=== PATIENT | female | born 1955 | race Caucasian/White ===

== ENCOUNTER → 2020-04-13 13:09 | Outpatient (CLI) | payer BC, SELFPAY ==
--- NOTE | ~2020-04-13 | DEXA_ITS ---
Bone Density Report Name: Emy Bhatia Age: 64 Sex: Female Ethnicity: White Date of : 1955 Indication: postmenopausal; screening for osteoporosis; Referring Provider: PASCUAL, JULIA Study: Bone densitometry was performed. Exam Date: April 13, 2020 Accession number: [id number] Bone Density: Region BMD T-score Z-score Classification AP Spine (L1-L4) 0.933 -1.0 0.5 Normal Femoral Neck (Left) 0.757 -0.8 0.6 Normal Total Hip (Left) 0.801 -1.2 -0.1 Osteopenia Femoral Neck (Right) 0.801 -0.4 1.0 Normal Total Hip (Right) 0.803 -1.1 -0.1 Osteopenia Total Hip Mean 0.802 -1.2 -0.1 Osteopenia World Health Organization criteria for BMD impression classify patients as: Normal (T-score at or above -1.0), Osteopenia (T-score between -1.0 and -2.5), or Osteoporosis (T-score at or below -2.5). 10-year Fracture Risk(1): Major Osteoporotic Fracture 6.8% Hip Fracture 0.3% Reported Risk Factors: [place] (), Neck BMD=0.757, BMI=35.6 (1) FRAX(R) Version 3.08. Fracture probability calculated for an untreated patient. Fracture probability may be lower if the patient has received treatment. Previous Exams: Region Exam Age BMD T-score BMD Change BMD Change Date g/cm2 vs Baseline vs Previous AP Spine(L1-L4) 04/13/2020 64 0.933 -1.0 -0.015 -0.030 09/13/2016 60 0.964 -0.8 0.015 0.015 07/05/2013 57 0.949 -0.9 0.000 0.067* 06/10/2011 55 0.881 -1.5 -0.067* -0.067* 07/02/2008 52 0.948 -0.9 Total Hip(Left) 04/13/2020 64 0.801 -1.2 -0.007 -0.028 09/13/2016 60 0.829 -0.9 0.021 0.000 07/05/2013 57 0.829 -0.9 0.021 0.022 06/10/2011 55 0.807 -1.1 -0.001 -0.001 07/02/2008 52 0.808 -1.1 Total Hip(Right) 04/13/2020 64 0.803 -1.1 0.009 -0.019 09/13/2016 60 0.822 -1.0 0.028* -0.006 07/05/2013 57 0.828 -0.9 0.034* 0.030* 06/10/2011 55 0.798 -1.2 0.003 0.003 07/02/2008 52 0.794 -1.2 *Denotes significance at 95% confidence level, LSC for AP Spine = 0.022 g/cm2, LSC for Total Hip = 0.027 g/cm2 Clinical Information Provided by Patient: Has used the following medications: Vitamin D Patient maximum height was 65.5 Menopause Age: 51 Drinks caffeinated beverages Onset of menses at age 16 Number of children 2 -------
== END ==
PROVIDERS: Visit Provider Nurse Practitioner
DX: Z78.0 Asymptomatic menopausal state (principal); M85.852 Other specified disorders of bone density and structure, left thigh; M85.851 Other specified disorders of bone density and structure, right thigh
CPT/HCPCS: 77080

== ENCOUNTER 2020-04-23 09:31 | Outpatient (CLI) | payer BC, SELFPAY ==
--- NOTE | ~2020-04-23 | MM_ITS ---
EXAMINATION: MM screening perlita BI w elvin HISTORY: Screening mammogram TECHNIQUE: Craniocaudal and mediolateral oblique 3-D tomosynthesis images were obtained and synthetic 2-D images were generated. CAD analysis was submitted and interpreted. COMPARISON: 04/18/2019, 08/08/2017, 07/04/2016 bilateral digital screening mammogram examinations BREAST PARENCHYMAL COMPOSITION: There are scattered areas of fibroglandular density. FINDINGS: Stable mild fibroglandular asymmetry. There is no evidence of suspicious mass, calcificatio n, or architectural distortion to suggest malignancy in either breast. There has been no suspicious i nterval change. IMPRESSION: 1. No mammographic evidence of malignancy. 2. Recommend routine screening mammography in one year. BI-RADS Category 1: Negative Reviewed, dictated and finalized at location A.
== END 2020-04-23 09:32 | disposition home or self-care (01) ==
LOC: ANHIMG 09:35
PROVIDERS: PCP Internal Medicine; Visit Provider Nurse Practitioner
DX: Z12.31 Encounter for screening mammogram for malignant neoplasm of breast (principal)
CPT/HCPCS: 77063; 77067

== ENCOUNTER 2020-10-21 07:42 | Outpatient (CLI) | payer OTHER, SELFPAY ==
--- NOTE | ~2020-10-21 | XR_ITS ---
EXAMINATION: XR UGIAC w barium swallow DATE: 10/21/2020 08:29 INDICATION: Gastroesophageal reflux disease TECHNIQUE: The patient drank thick barium, gas-producing crystals, and thin barium. Conventional supi ne abdomen radiographs and fluoroscopy of the esophagus, stomach, and proximal small bowel were perfo rmed. Fluoroscopy exposure time was 2.8 minutes. The DAP for this procedure was 27 Gycm2. COMPARISON: None. FINDINGS: There is no mass or stricture of the esophagus. Esophageal motility is normal. There is a s mall sliding hiatal hernia. There was a small amount of spontaneous gastroesophageal reflux. The stom ach and proximal small bowel show normal folding patterns. IMPRESSION: 1. Small sliding hiatal hernia and a small amount of spontaneous gastroesophageal reflux. Reviewed, dictated and finalized at location A. E MAKER IMPRESSION: 1. Small sliding hiatal hernia and a small amount of spontaneous gastroesophage al reflux.
== END 2020-10-21 07:43 | disposition home or self-care (01) ==
LOC: ANHIMG 07:48
PROVIDERS: PCP Internal Medicine; Visit Provider Physician Assistant Medical
DX: K21.9 Gastro-esophageal reflux disease without esophagitis (principal); K44.9 Diaphragmatic hernia without obstruction or gangrene
CPT/HCPCS: 74246

== ENCOUNTER 2021-03-04 01:23 | Day surgery (SDC) | payer OTHER, SELFPAY ==
[2021-02-18 11:04] VITALS: BMI 34.1
[2021-03-04 06:48] VITALS: BP 120/68; PULSE 89; RESP 18; TEMP 35.9; O2SAT 97; BMI 33.6
[2021-03-04] MEDS: LACTATED RINGERS 1,000 ML 150 ML IV CONT (06:57)
--- NOTE | 2021-03-04 07:24 | WPDANESEPPF ---
Anes - Initial Pre Proc Eval Procedure: Operation Date: 03/04/21 08:00 Proposed Procedures p Colonoscopy - Vignesh Burris DO Date/Time: 03/04/21 07:24 Surgeon: Vignesh Burris DO Pre Op Diagnosis: colon polyps, constipation Patient Data Age: 65 Gender: F Height: 1.68 m Weight: 94.5 kg Last Vital Signs Temp 96.7 F L 03/04/21 06:48 Pulse 89 03/04/21 06:48 Resp 18 03/04/21 06:48 BP 120/68 03/04/21 06:48 Pulse Ox 97 03/04/21 06:48 Allergies Allergy/AdvReac Type Severity Reaction Status Date / Time No Known Allergies Allergy Mild Verified 02/18/21 11:03 Home Medications Medication Instructions Recorded Confirmed Type ergocalciferol (vitamin D2) 1,250 50,000 unit PO WEEKLY 09/23/19 03/04/21 History mcg (50,000 unit) capsule rabeprazole 20 mg tablet,delayed 20 mg PO DAILY #90 tablet 09/03/20 03/04/21 Rx release Patient hx anesthesia problems: none Family hx anesthesia problems: none PMFSH Past Medical History Medical History (System 10/21/20 @ 08:52 by Karla Ly) GERD (gastroesophageal reflux disease) Lipoma of breast Left removed Squamous cell carcinoma removed 2016 Tinnitus Surgical History Surgical History (System 10/21/20 @ 08:52 by Karla Ly) H/O endoscopy 10/2017 Family History Family History (System 10/21/20 @ 08:52 by Karla Ly) Mother Rectal cancer Father Lung cancer Social History Social History (System 10/21/20 @ 08:52 by Karla Ly) Smoking status: Former smoker Alcohol intake: current Alcohol use details: Socially Substance use: never Substance use type: does not use Living arrangements: with family Gender identity (if verbalized by the patient): Female Spiritual care concerns: No Anes - Eval Final PreProcedure Day of Procedure 03/04/21 07:24 Patient weight: obese Heart: regular rate and rhythm Lungs: clear to auscultation Airway: Mallampati scale class II Neurological: alert and oriented Last oral intake: >/= 8 hours ASA classification: II Emergent: no Anesthetic plan: proceed Anesthesia type and monitoring: general GIVS and standard monitoring Informed Consent: The patient's anesthetic plan and its attendant risks and benefits were discussed with the patient/family/POA. Questions were solicited and answers provided to the satisfaction of the patient/family/POA.
--- NOTE | 2021-03-04 07:52 | WPDGICN ---
GI Consult Note Consult date/time: 03/04/21 07:52 HPI: Reason for visit colonoscopy. Very pleasant lady seen in consultation request of the primary physician. Impression: Screening and surveillance colonoscopy. The patient has a history of colon polyps and a family history of colorectal cancer. GERD pretty well controlled on medication. Skin cancer. Squamous cell carcinoma. HLD. Recommendation: Colonoscopy. History: This very pleasant lady's being evaluated for screening and surveillance colonoscopy. She has a family history of rectal cancer. The patient has a history of colon polyps. Patient does report a history of reflux disease. It is pretty well controlled with medication. She has open where breakthrough symptoms. She is here for colonoscopy. Physical examination: General: very pleasant patient in no acute distress. HEENT: Head was normocephalic sclerae is clear mouth without masses neck was supple. Heart: Rate rhythm regular without S3 or S4. Lungs: CTA. Abdomen: Soft with no guarding or rigidity. Bowel sounds were active. Neurologic: Cranial nerves 2 through 12 intact. No focal defects. No clonus. Musculoskeletal system: Revealed no joint tenderness or swelling no muscle atrophy. Extremities: Reveal no significant edema. Skin: Warm and dry with normal turgor. Mental status: intact. Patient is alert and oriented. Review of Systems Review of Systems: All systems reviewed & are unremarkable except as noted in HPI and below PMFSH Past Medical History Medical History (System 10/21/20 @ 08:52 by Karla Ly) GERD (gastroesophageal reflux disease) Lipoma of breast Left removed Squamous cell carcinoma removed 2016 Tinnitus Surgical History Surgical History (System 10/21/20 @ 08:52 by Karla Ly) H/O endoscopy 10/2017 Family History Family History (System 10/21/20 @ 08:52 by Karla Ly) Mother Rectal cancer Father Lung cancer Social History Social History (System 10/21/20 @ 08:52 by Karla Ly) Smoking status: Former smoker Alcohol intake: current Alcohol use details: Socially Substance use: never Substance use type: does not use Living arrangements: with family Gender identity (if verbalized by the patient): Female Spiritual care concerns: No Meds Home Medications and Allergies Home Medications Medication Instructions Recorded Confirmed Type ergocalciferol (vitamin D2) 1,250 50,000 unit PO WEEKLY 09/23/19 03/04/21 History mcg (50,000 unit) capsule rabeprazole 20 mg tablet,delayed 20 mg PO DAILY #90 tablet 09/03/20 03/04/21 Rx release Allergies Allergy/AdvReac Type Severity Reaction Status Date / Time No Known Allergies Allergy Mild Verified 02/18/21 11:03 Vital Signs Vital Signs - 24 hr 03/04/21 06:48 Temperature 35.9 C L Pulse Rate 89 Respiratory Rate 18 Blood Pressure 120/68 Pulse Oximetry 97
[2021-03-04 08:20] VITALS: BP 88/50; PULSE 61; RESP 18; O2SAT 97
[2021-03-04 08:28] VITALS: BP 92/61; PULSE 62; RESP 18; O2SAT 100
[2021-03-04 08:38] VITALS: BP 97/60; PULSE 61; RESP 18; O2SAT 100
== END 2021-03-04 08:56 | disposition home or self-care (01) ==
PROVIDERS: PCP Internal Medicine; Visit Provider Internal Medicine Gastroenterology
PROC: 0DJD8ZZ Inspection of Lower Intestinal Tract, Via Natural or Artificial Opening Endoscopic (ICD-10-PCS; CPT 45378; principal; 2021-03-04 08:00)
DX: Z12.11 Encounter for screening for malignant neoplasm of colon (principal); K57.30 Diverticulosis of large intestine without perforation or abscess without bleeding; Z86.010 Personal history of colon polyps; Z80.0 Family history of malignant neoplasm of digestive organs; K21.9 Gastro-esophageal reflux disease without esophagitis; E78.5 Hyperlipidemia, unspecified; Z85.828 Personal history of other malignant neoplasm of skin; Z87.891 Personal history of nicotine dependence; E66.9 Obesity, unspecified; Z68.33 Body mass index [BMI] 33.0-33.9, adult
CPT/HCPCS: 45378; J2704; J7120

== ENCOUNTER → 2021-12-15 15:41 | Outpatient (CLI) | payer OTHER, SELFPAY ==
--- NOTE | ~2021-12-15 | MM_ITS ---
EXAMINATION: MM screening perlita BI w elvin HISTORY: Screening TECHNIQUE: Craniocaudal and mediolateral oblique 3-D tomosynthesis images were obtained and synthetic 2-D images were generated. CAD analysis was submitted and interpreted. COMPARISON: Comparison to multiple prior studies sequentially, with oldest reviewed study dated 09/2012. BREAST PARENCHYMAL COMPOSITION: Breast composed of scattered areas of fibroglandular density FINDINGS: The left breast is stable without evidence for malignancy. There is a developing asymmetry in the central aspect of the right breast on CC view. IMPRESSION: 1. Developing right breast asymmetry. 2. Additional mammographic views and possible breast ultrasound are recommended. BI-RADS Category 0: Incomplete: Needs additional imaging evaluation. Reviewed, dictated and finalized at location A. IMPRESSION: 1. Developing right breast asymmetry. 2. Additional mammographic views and possible breast ultrasound are recommended . BI-RADS Category 0: Incomplete: Needs additional imaging evaluation.
== END ==
PROVIDERS: PCP Internal Medicine; Visit Provider Nurse Practitioner
DX: Z12.31 Encounter for screening mammogram for malignant neoplasm of breast (principal); R92.8 Other abnormal and inconclusive findings on diagnostic imaging of breast
CPT/HCPCS: 77063; 77067

== ENCOUNTER → 2021-12-31 08:21 | Outpatient (CLI) | payer OTHER, SELFPAY ==
--- NOTE | ~2021-12-31 | MMUS_ITS ---
EXAMINATION: MM diagnostic perlita RT w elvin, US breast RT complete HISTORY: Follow-up right breast asymmetry TECHNIQUE: Additional 3-D tomosynthesis images of the right breast were performed and synthetic 2-D i mages were generated. CAD analysis was submitted and interpreted. High resolution complete right marlyn st ultrasound was performed. COMPARISON: 08/19/2014 BREAST PARENCHYMAL COMPOSITION: BREAST PARENCHYMAL COMPOSITION: The breasts are heterogeneously dense, which may obscure small masses . FINDINGS: MAMMOGRAPHIC FINDINGS: There are no suspicious masses, calcifications or architectural distortion in the right breast to sug gest malignancy. ULTRASOUND: Complete US of all 4 quadrants of the right breast and retroareolar region was reviewed. At 12:00, 2 cm from the nipple there is a 3 mm cyst. There is heterogeneous subareolar soft tissue without discre te mass. IMPRESSION: 1. No evidence for malignancy in the right breast. Benign findings. 2. Routine yearly screening mammogram and regular clinical breast examination are recommended. BI-RADS Category 2: Benign finding(s). Reviewed, dictated and finalized at location A. IMPRESSION: 1. No evidence for malignancy in the right breast. Benign findings. 2. Routine yearly screening mammogram and regular clinical breast examination a re recommended. BI-RADS Category 2: Benign finding(s).
== END ==
PROVIDERS: PCP Obstetrics & Gynecology Gynecology; Visit Provider Obstetrics & Gynecology Gynecology
DX: R92.8 Other abnormal and inconclusive findings on diagnostic imaging of breast (principal)
CPT/HCPCS: 76641; 77061; 77065; G0279

== ENCOUNTER 2023-01-02 09:57 | Outpatient (CLI) | payer OTHER, SELFPAY ==
--- NOTE | ~2023-01-02 | DEXA_ITS ---
Bone Density Report Name: PAULA CHENG Age: 67 Sex: Female Ethnicity: White Date of : 1955 Indication: osteopenia; prior fracture;postmenopausal Referring Provider: PASCUAL, JULIA Study: Bone densitometry was performed. Exam Date: January 02, 2023 Accession number: [id number] Bone Density: Region BMD T-score Z-score Classification AP Spine (L1-L4) 0.910 -1.2 0.5 Osteopenia Femoral Neck (Left) 0.745 -0.9 0.6 Normal Total Hip (Left) 0.794 -1.2 0.0 Osteopenia Femoral Neck (Right) 0.708 -1.3 0.3 Osteopenia Total Hip (Right) 0.733 -1.7 -0.5 Osteopenia Total Hip Mean 0.764 -1.5 -0.3 Osteopenia World Health Organization criteria for BMD impression classify patients as: Normal (T-score at or above -1.0), Osteopenia (T-score between -1.0 and -2.5), or Osteoporosis (T-score at or below -2.5). 10-year Fracture Risk(1): Major Osteoporotic Fracture 13% Hip Fracture 1.1% Reported Risk Factors: [place] (), Neck BMD=0.708, BMI=29.9, previous fracture (1) FRAX(R) Version 3.08. Fracture probability calculated for an untreated patient. Fracture probability may be lower if the patient has received treatment. Previous Exams: Region Exam Age BMD T-score BMD Change BMD Change Date g/cm2 vs Baseline vs Previous AP Spine(L1-L4) 01/02/2023 67 0.910 -1.2 -0.038* -0.023 04/13/2020 64 0.933 -1.0 -0.015 -0.030 09/13/2016 60 0.964 -0.8 0.015 0.015 07/05/2013 57 0.949 -0.9 0.000 0.067* 06/10/2011 55 0.881 -1.5 -0.067* -0.067* 07/02/2008 52 0.948 -0.9 Total Hip(Left) 01/02/2023 67 0.794 -1.2 -0.014 -0.007 04/13/2020 64 0.801 -1.2 -0.007 -0.028 09/13/2016 60 0.829 -0.9 0.021 0.000 07/05/2013 57 0.829 -0.9 0.021 0.022 06/10/2011 55 0.807 -1.1 -0.001 -0.001 07/02/2008 52 0.808 -1.1 Total Hip(Right) 01/02/2023 67 0.733 -1.7 -0.061* -0.070 04/13/2020 64 0.803 -1.1 0.009 -0.019 09/13/2016 60 0.822 -1.0 0.028* -0.006 07/05/2013 57 0.828 -0.9 0.034* 0.030* 06/10/2011 55 0.798 -1.2 0.003 0.003 07/02/2008 52 0.794 -1.2 *Denotes significance at 95% confidence level, LSC for AP Spine = 0.022 g/cm2, LSC for Total Hip = 0.027 g/cm2 Clinical Information Provided by Patient:
--- NOTE | ~2023-01-02 | MM_ITS ---
EXAMINATION: MM screening [facility] BI w elvin HISTORY: Screening mammogram TECHNIQUE: Craniocaudal and mediolateral oblique 3-D tomosynthesis images were obtained and synthetic 2-D images were generated. CAD analysis was submitted and interpreted. COMPARISON: 12/31/2021, 12/15/2021, 04/23/2020, 04/18/2019 BREAST PARENCHYMAL COMPOSITION: The breasts are heterogeneously dense, which may obscure small masses . FINDINGS: No suspicious mass, calcification, or architectural distortion are identified in either valentin ast to suggest malignancy. There has been no suspicious interval change. IMPRESSION: 1. No mammographic evidence of malignancy. 2. Recommend routine screening mammography in one year. BI-RADS Category 1: Negative Reviewed, dictated and finalized at location A.
== END 2023-01-02 09:58 ==
PROVIDERS: PCP Nurse Practitioner; Visit Provider Nurse Practitioner
DX: Z12.31 Encounter for screening mammogram for malignant neoplasm of breast (principal); M85.88 Other specified disorders of bone density and structure, other site; Z78.0 Asymptomatic menopausal state; M85.852 Other specified disorders of bone density and structure, left thigh; M85.851 Other specified disorders of bone density and structure, right thigh
CPT/HCPCS: 77063; 77067; 77080

== ENCOUNTER 2024-03-26 13:10 | Outpatient (CLI) | payer OTHER, SELFPAY ==
--- NOTE | ~2024-03-26 | MM_ITS ---
EXAMINATION: MM screening perlita BI w elvin HISTORY: Screening TECHNIQUE: Craniocaudal and mediolateral oblique 3-D tomosynthesis images were obtained and synthetic 2-D images were generated. CAD analysis was submitted and interpreted. COMPARISON: Comparison to multiple prior studies sequentially, with oldest reviewed study dated 04/23. BREAST PARENCHYMAL COMPOSITION: Not dense: There are scattered areas of fibroglandular density. FINDINGS: There are developing bilateral periareolar/subareolar asymmetries. There are no suspicious calcifications. IMPRESSION: 1. Developing bilateral asymmetries. 2. Additional mammographic views and possible breast ultrasound are recommended. BI-RADS Category 0: Incomplete: Needs additional imaging evaluation. Reviewed, dictated and finalized at location B. IMPRESSION: 1. Developing bilateral asymmetries. 2. Additional mammographic views and possible breast ultrasound are recommended . BI-RADS Category 0: Incomplete: Needs additional imaging evaluation.
== END 2024-03-26 13:11 ==
LOC: MICIMG 13:11
PROVIDERS: PCP Nurse Practitioner; Visit Provider Nurse Practitioner
DX: Z12.31 Encounter for screening mammogram for malignant neoplasm of breast (principal); R92.8 Other abnormal and inconclusive findings on diagnostic imaging of breast
CPT/HCPCS: 77063; 77067

== ENCOUNTER 2024-04-24 07:55 | Outpatient (CLI) | payer OTHER, SELFPAY ==
--- NOTE | ~2024-04-24 | MMUS_ITS ---
EXAMINATION: MM diagnostic perlita BI w elvin, US breast BI complete HISTORY: Follow-up bilateral breast asymmetries TECHNIQUE: Additional 3-D tomosynthesis images of the breasts were performed and synthetic 2-D images were generated. CAD analysis was submitted and interpreted. High resolution bilateral complete breas t ultrasound was performed. COMPARISON: Comparison to multiple prior studies sequentially, with oldest reviewed study dated 04/18. BREAST PARENCHYMAL COMPOSITION: Not dense: There are scattered areas of fibroglandular density. FINDINGS: MAMMOGRAPHIC FINDINGS: No discrete masses, architectural distortion or suspicious calcifications are identified. There is ni pple inversion. No skin thickening. ULTRASOUND: Complete US of all 4 quadrants of the breast/s and retroareolar region was reviewed. Right breast: At 12:00, 3 cm from the nipple, there is a 7 mm cyst. At 12:00, 2 cm from the nipple th ere is an irregular shaped antiparallel hypoechoic 7 mm mass with mixed posterior attenuation and no internal vascularity. Left breast: Normal heterogeneous echotexture without focal solid or cystic mass. IMPRESSION: 1. Irregular shape 7 mm hypoechoic right breast mass at 12:00, 2 cm from the nipple. 2. Ultrasound-guided right breast biopsy recommended. BI-RADS category 4, suspicious findings. Reviewed, dictated and finalized at location B. IMPRESSION: 1. Irregular shape 7 mm hypoechoic right breast mass at 12:00, 2 cm from the ni pple. 2. Ultrasound-guided right breast biopsy recommended. BI-RADS category 4, suspicious findings.
== END 2024-04-24 07:56 ==
PROVIDERS: PCP Obstetrics & Gynecology Gynecology; Visit Provider Obstetrics & Gynecology Gynecology
DX: R92.8 Other abnormal and inconclusive findings on diagnostic imaging of breast (principal)
CPT/HCPCS: 76641; 77062; 77066; G0279

== ENCOUNTER 2024-06-03 07:53 | Outpatient (CLI) | payer OTHER, SELFPAY ==
--- NOTE | ~2024-06-03 | MMUS_ITS ---
US breast biopsy RT w image, MM post biopsy diagnostic RT EXAMINATION: US GUIDED NEEDLE BIOPSY WITH VACUUM ASSISTANCE DATE: 06/03/2024 11:10 CDT INDICATION: Right breast mass seen on prior examination. Ultrasound-guided core biopsy is requested to evaluate for malignancy. BREAST PARENCHYMAL COMPOSITION: Dense: The breasts are heterogeneously dense, which may obscure small masses TECHNIQUE AND FINDINGS: The risks and potential benefits of the procedure were discussed with the patient, and written inform ed consent was obtained. After sterile preparation of the right breast, 1% lidocaine was utilized fo r local anesthesia. 1% lidocaine with epinephrine was used for deep anesthesia. A 10G vacuum-assisted biopsy gun needle was advanced through to the outer edge of the region of inter est from a superior/inferior/medial/lateral/superolateral/superomedial/inferolateral/inferomedial jacques miramontes utilizing sonographic guidance. A total of three tissue core samples were obtained through the lesion. An Inrad tissue marker clip was then placed at the biopsy site. Hemostasis was achieved. The patient tolerated procedure well and there was no evidence of immediate complication. The patien t was given verbal instructions partly is from the department. Right breast mammograms to document t issue marker clip placement. The tissue samples were submitted to surgical pathology for histologic a nalysis. IMPRESSION: 1. Successful ultrasound-guided vacuum-assisted biopsy of right breast mass with post procedure mamm ogram for marker placement. Please refer to pathology report for histologic analysis. Reviewed, dictated and finalized at location B. IMPRESSION: 1. Successful ultrasound-guided vacuum-assisted biopsy of right breast mass wi th post procedure mammogram for marker placement. Please refer to pathology rep ort for histologic analysis.
== END 2024-06-03 07:54 | disposition home or self-care (01) ==
PROVIDERS: PCP Obstetrics & Gynecology Gynecology; Visit Provider Surgery
DX: N63.15 Unspecified lump in the right breast, overlapping quadrants (principal); R92.8 Other abnormal and inconclusive findings on diagnostic imaging of breast
CPT/HCPCS: 19083; 77065; 88305; 88342; A4648

== ENCOUNTER 2025-03-14 10:44 | Outpatient (CLI) | payer OTHER, SELFPAY ==
--- NOTE | ~2025-03-14 | MR_ITS ---
MRI of the left knee Clinical history: Pain Technique: Coronal proton density and proton density-weighted images, sagittal proton-density and T2 fat-sat images, and axial proton-density fat-saturated images were acquired. Findings: Anterior and posterior cruciate ligaments are intact. Medial collateral ligament and the la teral collateral ligament complex are intact. Popliteus tendon is intact. Questionable subtle oblique tear of the posterior horn of the medial meniscus. No lateral meniscal te ar seen. There is high-grade chondral malacia the patellar apex. There is patchy moderate chondromalacia throu ghout the medial compartment. Small tricompartmental osteophyte are present. Extensor mechanism is intact. Small joint effusion present. No Ram's cyst. Impression: Questionable subtle oblique tear of the posterior horn of the medial meniscus. Degenerative changes, as detailed above. Small joint effusion. Reviewed, dictated and finalized at [facility]. Impression: Questionable subtle oblique tear of the posterior horn of the medial meniscus. Degenerative changes, as detailed above. Small joint effusion.
== END 2025-03-14 10:45 | disposition home or self-care (01) ==
LOC: GOSHIMG 10:44
PROVIDERS: PCP Nurse Practitioner Family; Visit Provider Nurse Practitioner Family
DX: M25.462 Effusion, left knee (principal); M17.12 Unilateral primary osteoarthritis, left knee
CPT/HCPCS: 73721

== ENCOUNTER 2025-04-14 09:29 | Outpatient (CLI) | payer OTHER, SELFPAY ==
--- NOTE | ~2025-04-14 | DEXA_ITS ---
Bone Density Report Name: PAULA CHENG Age: 69 Sex: Female Ethnicity: White Date of : 1955 Indication: osteopenia; height loss; Referring Provider: SUHAS MANCIA Study: Bone densitometry was performed. Exam Date: April 14, 2025 Accession number: [id number] Bone Density: Region BMD T-score Z-score Classification AP Spine(L1-L4) 0.916 -1.2 0.7 Osteopenia Femoral Neck (Left) 0.656 -1.7 -0.1 Osteopenia Total Hip (Left) 0.795 -1.2 0.2 Osteopenia Femoral Neck (Right) 0.656 -1.7 -0.1 Osteopenia Total Hip (Right) 0.801 -1.2 0.2 Osteopenia Total Hip Mean 0.798 -1.2 0.2 Osteopenia World Health Organization criteria for BMD impression classify patients as: Normal (T-score at or above -1.0), Osteopenia (T-score between -1.0 and -2.5), or Osteoporosis (T-score at or below -2.5). 10-year Fracture Risk(1): Major Osteoporotic Fracture 9.7% Hip Fracture 1.3% Reported Risk Factors: [place] (), Neck BMD=0.656, BMI=31.8 (1) FRAX(R) Version 3.08. Fracture probability calculated for an untreated patient. Fracture probability may be lower if the patient has received treatment. Previous Exams: Region Exam Age BMD T-score BMD Change BMD Change Date g/cm2 vs Baseline vs Previous AP Spine (L1-L4) 04/14/2025 69 0.916 -1.2 0.006 (0.6%)# 0.006 (0.6%)# 01/02/2023 67 0.910 -1.2 Total Hip(Left) 04/14/2025 69 0.795 -1.2 0.001 (0.1%)# 0.001 (0.1%)# 01/02/2023 67 0.794 -1.2 Total Hip(Right) 04/14/2025 69 0.801 -1.2 0.068 (9.3%)# 0.068 (9.3%)# 01/02/2023 67 0.733 -1.7 *Denotes significance at 95% confidence level, LSC for AP Spine = 0.022 g/cm2, LSC for Total Hip = 0.027 g/cm2 # Denotes dissimilar scan types or analysis methods Clinical Information Provided by Patient: Has used the following medications: Fosamax (i.e. alendronate), Vitamin D, Calcium Patient maximum height was 66.0 Menopause Age: 51 Does not regularly consume dairy products Drinks caffeinated beverages Onset of menses at age 16 Number of children 2 Impression: The patient has low bone mass, based on the Left Femoral Neck T-score. The patient has an estimated ten-year risk of hip fracture of 1.3% and an estimated ten-year risk of major fracture of 9.7%, based on the WHO FRAX algorithm. No significant bone loss was observed. Discussion: BONE DENSITY IS LOW AT ONE OR MORE SKELETAL SITES. This patient's lowest T-score is low at one or more skeletal sites. It meets the World Health Organization's (WHO) criteria for ?low bone mass? (T-score between -1.0 and -2.5). The patient's 10-year risk of fracture as calculated by FRAX is less than the threshold where pharmacological therapy is recommended by the National Osteoporosis Foundation (NOF). However, all treatment decisions require clinical judgment and consideration of individual patient factors, including patient preferences, comorbidities, previous drug use, risk factors not captured in the FRAX model (e.g., frailty, falls, vitamin D deficiency, increased bone turnover, interval significant decline in bone density) and possible under or overestimation of fracture risk by FRAX. The patient should follow a healthful lifestyle (good nutrition with adequate calcium and vitamin D, and appropriate weight-bearing exercise). Follow-Up: Consider repeating this study in 2 to 3 years to reassess this patient's status, or sooner if there is some new clinical indication. Reported by: NITA on 04/14/2025 10:33:00 AM. Reviewed, dictated and finalized at location A.
--- OUTSIDE RECORDS SUMMARY | 2025-04-14 09:35 | XMS_ITS | Continuity of Care Document ---
Author Organization [facility] Address [address] [place] [address] Phone Care Team Providers Care Bid Analyst Name Role Phone Shelton Montes MD Unavailable [...] Diagnoses Date Provider Providers Copied on Encounter [facility]Radius [facility], [address], [place], [place], [address], tel:[phone] [facility] No Information Simon Peoples. [address], [address], [place], [place], [address], [place]. tel:[phone] [employer], [address], [place], [place], [address], [place] tel:[phone] [facility] CERVICALGIA iSmon Peoples. [address], [address], [place], [place], [address], [place]. tel:[phone] [employer], [address], [place], [place], [address], [place] tel:[phone] [facility] MALAISE AND FATIGUE NECACUTE PHARYNGITIS Jayme Moran. [address] [facility], [address], [place], [place], [address], [place]. tel:[phone] [employer], [address], [place], [place], [address], [place] tel:[phone] [facility] CONTUSION NOS Simon Shelton. [address], [address], [place], [place], [address], . tel:[phone] [facility] [employer], [address], [place], [place], [address], tel:[phone] [facility] ELLA [employer] Jayme Moran. [address], [place], [place], [address], [place]. tel:[phone] [employer], [address], [place], [place], [address], tel:[phone] [facility] No Information Simon Peoples. [address], [address], [place], [place], [address], [place]. tel:[phone] Family History Family Member Type Diagnosis Age At Onset No Information Payers Payer name Insurance type Covered democrat ID Authoriza tion(s) No Information Social History [...]
--- OUTSIDE RECORDS SUMMARY | 2025-04-14 09:35 | XMS_ITS | Clinical Summary ---
Author Organization [facility] Address [address] [place] [address] Phone Care Team Providers Care Inhalation Therapy Aides Teacher Name Role Phone SuzyDarvin caldwell [place] COLIN Primary Care Provider Allergies No known active allergies Medications ergocalciferol (VITAMIN D) 89159 UNIT Capsule once a week. New instructions to take twice monthly 8 Active calcium carbonate (TUMS) 500 MG Chewable Tablet Take 2 Tabs by mouth daily. Active Famotidine (PEPCID PO) Take by mouth. Act jeronimo pantoprazole (PROTONIX) 40 MG Tablet Delayed Response Take 1 Tablet by mouth daily. 30 Tablet 3 2 Active Active Problems Problem Noted Date Diagnosed Date Gastroesophageal reflux disease 10/15/2021 Hiatal hernia 10/15/2021 Family History Medical History Relation Name Comments Cancer Father throat - voice box & lung Cancer Mother rectal Relation Name Status Comments Father Mother Alive Social History Tobacco Use Types Packs/Day Years Used Date Smoking Tobacco: Never Smokeless Tobacco: Never Tobacco Cessation:Counseling Given: No Alcohol Use Standard Drinks/Week Comments Yes 0 (1 standard drink = 0.6 oz pur e alcohol) Occasionally Sexually Active Control Partners Comments Yes Comments No Sex and Gender Information Value Date Recorded Sex Assigned at Not on file Legal Sex Female 9:46 PM CLEARANCE REPRESENTATIVE Gender Identity Not on file Sexual Orientation Not on file Occupation Industry Job Start Date Job End Date sales Not on file Not on file Not on file Last Filed Vital Signs Vital Sign Reading Time Taken Comments Blood Pressure 112/68 02/17/2022 9:03 AM CDT Pulse 72 02/17/2022 9:03 AM CDT Temperature 37 C (98.6 F) 11/05/2021 10:33 AM CLEARANCE REPRESENTATIVE Respiratory Rate 20 02/17/2022 9:03 AM CDT Oxygen Saturation 98% 02/17/2022 9:03 AM CDT Inhaled Oxygen Concentration - - Weight 91.2 kg (201 lb) 02/17/2022 9:03 AM CDT Height 167.6 cm (5' 6) 02/17/2022 9:03 AM CDT Body Mass Index 32.44 02/17/2022 9:03 AM CDT Plan of Treatment Health Maintenance Due Date Last Done Comments Hepatitis C Virus (HCV) Screening 1955 TdaP Immunization 1955 Cologuard 2002 Immunochemical Fecal Occult Blood 2002 Pneumococcal Immunization (5 0+ years) (1 of 1 - PCV) 2007 Zoster Immunization (1 of 2) 2007 SARS-COV-2 Immunization (3 - season) 2024 01/22/2021, 12/31/2020 Influenza Immunization (#1) 2025 Colonoscopy 03/04/2026 03/04/2021, 07/01/2015 Colorectal Cancer Screening 03/04/2026 Respiratory Syncytial Virus (RSV) Immunization (Adult) (1 - 1-dose 75+ series) 2032 DTaP/Tdap/Td Immunization Discontinued 12/26/2012 Hepatitis B Immunization Aged Out No longer eligible based on patient's age to complete this topic Human Papillomavirus (HPV) Immunization Aged Out No longer eligible based on patient's age to complete this topic Meningococcal Immunization (ACWY) Aged Out No longer eligible based on patient's age to complete this topic Rotavirus Immunization Aged Out No lo nger eligible based on patient's age to complete this topic Procedures Procedure Name Priority Date/Time Associated Diagnosis Comments HM COLONOSCOPY Routine 03/04/2021 from Last 3 Months or Most Recently Relevant to Health Maintenance Results * HM COLONOSCOPY (03/04/2021) us Vignesh Burris DO PROCEDURE/MINOR SURGICAL ORDERA BLES Final Result from Last 3 Months or Most Recently Relevant to Health Maintenance Care Teams Inhalation Therapy Aides Teacher Relationship Specialty Start Date End Date Darvin Weinstein DO [address] [facility] [address] PCP - General Internal Medicine 09/20/17
== END 2025-04-14 09:30 | disposition home or self-care (01) ==
PROVIDERS: PCP Obstetrics & Gynecology Gynecology; Visit Provider Obstetrics & Gynecology Gynecology
DX: M85.88 Other specified disorders of bone density and structure, other site (principal); Z13.820 Encounter for screening for osteoporosis
CPT/HCPCS: 77080

== ENCOUNTER 2025-05-02 14:54 | Outpatient (CLI) | payer OTHER, SELFPAY ==
--- OUTSIDE RECORDS SUMMARY | 2011-05-09 19:00 | XMS_ITS | Continuity of Care Document ---
Author Organization [facility] Address [address] [place] [address] Phone Care Team Providers Care Rn Medicare Name Role Phone Shelton Montes MD Unavailable Unavailable Allergies, Adverse Reactions, Alerts Substance Reaction Status Criticality No Known Drug Allergies Other Active No I nformation Medications Medication Instructions Dosage Effective Dates (start - stop) Status Comments ZYRTEC 10MG TABS 1 QD - No Longer Active FLONASE 50MCG APPLICS 2 QD - No Longer Active Advance Directives Directive Yes / No Effective Date File Name No Information Encounters Encounter Description Practice Location Reason(s) For Visit Diagnoses Date Provider Providers Copied on Encounter [facility], [address], [place], [place], [address], tel:[phone] [facility] No Information Simon Peoples. [address], [address], [place], [place], [address], [place]. tel:[phone] [employer] [facility] [address], [place], [place], [address], [place] tel:[phone] [facility] CERVICALGIA Simon Peoples. [address], [address], [place], [place], [address], [place]. tel:[phone] [facility] [address], [place], [place], [address], [place] tel:[phone] [facility] MALAISE AND FATIGUE NECACUTE PHARYNGITIS Jayme Moran. [address], [address], [place], [place], [address], [place]. tel:[phone] [employer] [facility] [address], [place], [place], [address], [place] tel:[phone] [facility] CONTUSION NOS Simon Shelton. [address], [address], [place], [place], [address], . tel:[phone] [facility], [address], [place], [place], [address], tel:[phone] [facility] [employer] Jayme Moran. [address], [address], [place], [place], [address], [place]. tel:[phone] [employer] [facility] [address], [place], [place], [address], tel:[phone] [facility] No Information Simon Peoples. [address], [address], [place], [place], [address], [place]. tel:[phone] Family History Family Member Type Diagnosis Age At Onset No Information Payers Payer name Insurance type Covered green party ID Authoriza tion(s) No Information Social History Type Description Quantity Date Captured Comments Sex Female Smoking Status No Information Chief Complaint And Reason For Visit No Information Reason For Referral Reason For Referral No Information History Of Present Illness Encounter Date Complaint History Of Prese nt Illness No Information Functional Status Date Functional Assessmen t No Information Instructions Date Instruction Additional Infor mation No Information Assessments Type Assessment Date No Information Patient Care Teams Name Effective Dates (start - stop) Status Members No Information
--- NOTE | ~2025-05-02 | MM_ITS ---
EXAMINATION: MM screening [facility] BI w elvin HISTORY: Screening TECHNIQUE: Craniocaudal and mediolateral oblique 3-D tomosynthesis images were obtained and synthetic 2-D images were generated. CAD analysis was submitted and interpreted. COMPARISON: Mammograms from 06/03/2024, 04/24/2024, 03/26/2024 and 01/02/2023 BREAST PARENCHYMAL COMPOSITION: There are scattered areas of fibroglandular density. FINDINGS: There is no evidence of suspicious mass, calcification, or architectural distortion to suggest malignancy. There has been no suspicious interval change. IMPRESSION: 1. No mammographic evidence of malignancy. Recommend routine screening mammography in one year. BI-RADS Category 2: Benign finding(s) Reviewed, dictated and finalized at location Q. IMPRESSION: 1. No mammographic evidence of malignancy. Recommend routine screening mammogra phy in one year. BI-RADS Category 2: Benign finding(s)
--- OUTSIDE RECORDS SUMMARY | 2025-05-02 14:57 | XMS_ITS | Clinical Summary ---
Author Organization [facility] Address [address] [place] [address] Phone Care Team Providers Care Siebel Consultant Name Role Phone SuzyDarvin caldwell [place] COLIN Primary Care Provider Allergies No known active allergies Medications ergocalciferol (VITAMIN D) 18100 UNIT Capsule once a week. 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
== END 2025-05-02 14:55 | disposition home or self-care (01) ==
LOC: ANHFOHIMG 14:56
PROVIDERS: PCP Internal Medicine; Visit Provider Nurse Practitioner
DX: Z12.31 Encounter for screening mammogram for malignant neoplasm of breast (principal)
CPT/HCPCS: 77063; 77067